=== PATIENT | male | born 1935 | race Caucasian/White ===

== ENCOUNTER 2017-04-07 09:07 | Day surgery (SDC) | payer OTHER ==
[2017-04-06 07:52] VITALS: BP 142/94
[~2017-04-07] VITALS: Ht 175.3 cm; Wt 90.0 kg
[~2017-04-07 09:07] MED LIST: ACET-1600 PO; ALBU6.7H INH; ASPI1TAB30 PO; ATOR20TA9 PO; BUDE10.2 INH; CALC625T23 PO; CHOL5000 PO; DILT180C9 PO; DIPH25CA61 PO; DOCU240C53 PO; DOCUSATE PO; LOSA50TA6 PO; METO-93 PO; MULT-132 PO; OXYC1TAB7 PO; POTA90TA2 PO; POTA99TA8 PO; PRIM50TA PO; SENNOSIDES PO; WARF2TAB7 PO
[2017-04-07] MEDS ORDERED: LACTATED RINGERS 1,000 ML IV SCH (09:45)
[2017-04-07] MEDS ORDERED: LIDOCAINE 1%, 2ML SQ PRN (10:00)
[2017-04-07] MEDS ORDERED: MIDAZOLAM 1 MG/ML, 2ML ONE (11:16)
[2017-04-07] MEDS ORDERED: FENTANYL PF 250 MCG/5ML ONE (11:16)
[2017-04-07] MEDS ORDERED: PROPOFOL 10 MG/ML, 20ML ONE (11:47)
[2017-04-07] MEDS ORDERED: DEXAMETHASONE 4 MG/ML, 1ML ONE (11:47)
[2017-04-07] MEDS ORDERED: ONDANSETRON 2MG/ML, 2ML ONE (11:47)
[2017-04-07] MEDS ORDERED: ONDANSETRON 2MG/ML, 2ML IVPush PRN (13:00)
[2017-04-07] MEDS ORDERED: hydrALAzine 20 MG/ML, 1ML IV PRN (13:00)
[2017-04-07] MEDS ORDERED: EPHEDRINE 50 MG/ML, 1ML IVPush PRN (13:00)
[2017-04-07] MEDS ORDERED: HYDROmorphone 1 MG/ML, 1ML IV PRN (13:00)
[2017-04-07] MEDS ORDERED: FENTANYL PF 100 MCG/2ML IV PRN (13:00)
[2017-04-07] MEDS ORDERED: OXYcodone 5 MG/5 ML ORAL.SOL UDC PO PRN (13:00)
[2017-04-07] MEDS ORDERED: LABETALOL 5MG/ML, 20ML IV PRN (13:00)
[2017-04-07] MEDS ORDERED: ACETAMINOPHEN 325 MG TABLET PO PRN (13:00)
[2017-04-07] MEDS ORDERED: METOPROLOL 1 MG/ML, 5ML IV PRN (13:00)
[2017-04-07] MEDS ORDERED: OXYcodone/APAP 5/325MG TABLET PO PRN (13:00)
[2017-04-07] MEDS ORDERED: PROMETHAZINE 25 MG/ML, 1ML IV PRN (13:00)
== END 2017-04-07 16:05 ==
LOC: OUT 09:07
PROVIDERS: ATTEND Urology
DX: N20.0 Calculus of kidney (principal); I10 Essential (primary) hypertension; R31.9 Hematuria, unspecified; Z90.49 Acquired absence of other specified parts of digestive tract; Z98.890 Other specified postprocedural states
CPT/HCPCS: 50590; J1100; J2250; J2405; J2704; J3010; J7120